=== PATIENT | female | born 1925 | race Caucasian/White ===

== ENCOUNTER 2016-07-05 08:26 | Emergency (ER) | payer MEDICARE, BC ==
[~2016-07-05 08:26] MED LIST: ACEON; ACETAMINOPHEN325 MG PO; ADVAIR 250-501 EACH IH; ADVAIR 2501 DISK W/D PO; AMARYL PO; AMOXICILLIN PO; ASTELIN137 MCG OD; CLARITIN10 MG PO; COLACE PO; COMBIVENT INH14.7 GM INH; COMBIVENT14.7 GM INH; FLONASE16 GM; FLORINEF ACETA0.1 MG PO; GLIMEPIRIDE2 MG PO; GUAIFENESI1 TAB.SR . PO; KCL PO; KEPPRA750 MG PO; LEVOXYL125 MC1 PO; ONGLYZA5 MG PO; OS-CAL 500500 MG DOB; PLAVIX PO; QUINAPRIL HCL20 MG PO; STOOL SOFTENER100 M1 PO; SYNTHROID PO; ZOCOR PO; ZOCOR20 MG PO; [UNRECOGNIZED DRUG - OTHER] OP
== END 2016-07-05 08:40 | disposition home or self-care (01) ==
LOC: CED 08:26
DX: M43.6 Torticollis (principal); I10 Essential (primary) hypertension
CPT/HCPCS: 99283